=== PATIENT | female | born 1940 | race Caucasian/White ===

== ENCOUNTER 2017-02-19 16:20 | Emergency (ER) | payer OTHER ==
[~2017-02-19 16:20] MED LIST: BENAZEPRIL; CORE25 PO; COU5 PO; CRESTOR; L40 PO; LEXAPRO; LEXAPRO PO; VIC PO; WARFARIN PO
[2017-02-19 19:35] VITALS: BP 140/73
== END 2017-02-19 19:35 | disposition home or self-care (01) ==
LOC: ED 16:20
DX: I73.9 Peripheral vascular disease, unspecified (principal); E78.5 Hyperlipidemia, unspecified; I10 Essential (primary) hypertension; Z86.73 Personal history of transient ischemic attack (TIA), and cerebral infarction without residual deficits; Z95.0 Presence of cardiac pacemaker; Z95.1 Presence of aortocoronary bypass graft
CPT/HCPCS: Q0092

== ENCOUNTER 2017-07-30 19:42 | Inpatient (IN) | payer OTHER ==
[~2017-07-30] VITALS: Ht 160 cm; Wt 71.9 kg
[2017-07-30 20:47] LABS: BASOPHIL % 0.4 % (0-2); PLATELET COUNT 277 x10^3mcL (130-400); RED CELL DISTRIBUTION WIDTH 13.6 % (11.5-14.5)
[2017-07-30 20:50] LABS: CALCIUM 9.1 mg/dL (8.5-10.1); CARBON DIOXIDE 31.9 mmol/L (21-32); CHLORIDE SERUM 100 mmol/L (98-107); CREATININE SERUM 0.9 mg/dL (0.6-1.0); GLUCOSE SERUM 382 mg/dL (74-106); POTASSIUM SERUM 4.1 mmol/L (3.5-5.1); SODIUM SERUM 132 mmol/L (136-145)
[2017-07-30 20:55] LABS: ALKALINE PHOSPHATASE 280 U/L (46-116); ALT/SGPT 76 U/L (14-59); AST/SGOT 25 U/L (15-37); BILIRUBIN TOTAL 0.8 mg/dL (0.20-1.00); TOTAL PROTEIN, SERUM 6.5 g/dL (6.4-8.2)
[2017-07-30 20:56] LABS: ALBUMIN 2.7 g/dL (3.4-5.0)
[2017-07-30] MEDS ORDERED: DIGOXIN0.125 M1 PO (21:10)
[2017-07-30] MEDS ORDERED: CLONAZEPAM1 MG PO (21:12)
[2017-07-30] MEDS ORDERED: CATAPRES0.1 MG PO (22:50)
[2017-07-30] MEDS ORDERED: AMITIZA8 MC1 PO (22:51)
[2017-07-30] MEDS ORDERED: COLACE100 MG PO (22:51)
[2017-07-30] MEDS ORDERED: DOK100 MG (22:51)
[2017-07-30] MEDS ORDERED: LACTULOSE10 GM/152 PO (22:52)
[2017-07-30] MEDS ORDERED: ATORVASTATIN CA40 M1 PO (22:54)
[2017-07-30 23:20] VITALS: BP 171/87
[2017-07-30 23:35] LABS: UA SPECIFIC GRAVITY 1.015 (1.005-1.035)
[2017-07-30 23:37] LABS: microscopic required? YES; urine erythrocyte 1+ (NEGATIVE)
[2017-07-31] VITALS (7 sets, daily range): BP systolic 132–207; BP diastolic 64–87
[2017-07-31 01:13] LABS: PHOSPHOROUS 3.1 mg/dL (2.5-4.9)
[2017-07-31 01:17] LABS: T3 TOTAL 0.8 ng/mL
[2017-07-31 01:23] LABS: FREE T4 1.06 ng/dL (0.76-1.46); FREE THYROXINE INDEX 2.4 ug/dL (1.4-4.5); T4(THYROXINE) 6.8 ug/dL (4.7-13.3)
[2017-07-31 06:05] LABS: BASOPHIL % 0.6 % (0-2); PLATELET COUNT 283 x10^3mcL (130-400); RED CELL DISTRIBUTION WIDTH 13.7 % (11.5-14.5)
[2017-07-31 06:44] LABS: CALCIUM 8.9 mg/dL (8.5-10.1); CARBON DIOXIDE 31.2 mmol/L (21-32); CHLORIDE SERUM 103 mmol/L (98-107); CREATININE SERUM 0.8 mg/dL (0.6-1.0); GLUCOSE SERUM 315 mg/dL (74-106); POTASSIUM SERUM 4.4 mmol/L (3.5-5.1); SODIUM SERUM 137 mmol/L (136-145)
[2017-08-01 06:21] VITALS: BP 156/67
[2017-08-01 06:28] LABS: ALBUMIN 2.6 g/dL (3.4-5.0); BILIRUBIN DIRECT 0.37 mg/dL (0.0-0.2); BILIRUBIN TOTAL 0.6 mg/dL (0.20-1.00); TOTAL PROTEIN, SERUM 6.3 g/dL (6.4-8.2)
[2017-08-01 09:39] VITALS: BP 190/81
[2017-08-01 11:58] VITALS: BP 148/64
[2017-08-01 17:45] VITALS: BP 216/102
[2017-08-01 21:26] VITALS: BP 194/76
[2017-08-01 23:51] VITALS: BP 142/61
[2017-08-02 05:33] VITALS: BP 141/59
[2017-08-02 08:17] VITALS: BP 140/77
[2017-08-02] MEDS ORDERED: METFORMIN HCL1000 MG PO (10:30)
[2017-08-02 10:34] LABS: BILIRUBIN DIRECT 0.16 mg/dL (0.0-0.2); BILIRUBIN TOTAL 0.68 mg/dL (0.20-1.00); TOTAL PROTEIN, SERUM 6.8 g/dL (6.4-8.2)
[2017-08-02 10:35] LABS: ALBUMIN 2.9 g/dL (3.4-5.0)
[2017-08-02] MEDS ORDERED: ZES10 PO (10:43)
[2017-08-02] MEDS ORDERED: LEXAPRO10 MG PO (10:45)
[2017-08-02 12:45] VITALS: BP 140/77
[2017-08-02] MEDS ORDERED: XARELTO10 M1 PO (12:58)
== END 2017-08-02 13:47 | disposition home or self-care (01) | DRG 391 ==
LOC: ED 19:42 → DU 22:11
PROVIDERS: Emergency Medicine; Internal Medicine Gastroenterology; ADMIT Family Medicine
PROC: 0DBL8ZZ Excision of Transverse Colon, Via Natural or Artificial Opening Endoscopic (ICD-10-PCS; 2017-08-01)
PROC: 0DBK8ZZ Excision of Ascending Colon, Via Natural or Artificial Opening Endoscopic (ICD-10-PCS; principal; 2017-08-01 12:00)
DX: K59.00 Constipation, unspecified (principal); E43 Unspecified severe protein-calorie malnutrition; K85.10 Biliary acute pancreatitis without necrosis or infection; N39.0 Urinary tract infection, site not specified; D12.3 Benign neoplasm of transverse colon; D12.2 Benign neoplasm of ascending colon; K57.30 Diverticulosis of large intestine without perforation or abscess without bleeding; E86.0 Dehydration; I16.0 Hypertensive urgency; E11.65 Type 2 diabetes mellitus with hyperglycemia; E11.51 Type 2 diabetes mellitus with diabetic peripheral angiopathy without gangrene; K80.20 Calculus of gallbladder without cholecystitis without obstruction; I10 Essential (primary) hypertension; E78.5 Hyperlipidemia, unspecified; R31.9 Hematuria, unspecified; I48.2 Chronic atrial fibrillation; I25.2 Old myocardial infarction; Z68.28 Body mass index [BMI] 28.0-28.9, adult; Z79.01 Long term (current) use of anticoagulants; Z86.73 Personal history of transient ischemic attack (TIA), and cerebral infarction without residual deficits; Z95.1 Presence of aortocoronary bypass graft
CPT/HCPCS: 45378; 76770; 82962; 83880; 84439; 90658; 97110-GP; 97116-GP; 97530-GP; J0360; J0696; J1200; J1610; J1885; J2250; J2310; J2405; J2765; J3010; J3490; J7030; J7120; Q0092

== ENCOUNTER → 2017-08-08 | Outpatient (CLI) | payer OTHER ==
[~2017-08-08] MED LIST changes: +AMITIZA8 MC1 PO; +ATORVASTATIN CA40 M1 PO; +CATAPRES0.1 MG PO; +CLONAZEPAM1 MG PO; +COLACE100 MG PO; +DIGOXIN0.125 M1 PO; +DOK100 MG; +LACTULOSE10 GM/152 PO; +LEXAPRO10 MG PO; +METFORMIN HCL1000 MG PO; +XARELTO10 M1 PO; +ZES10 PO
[2017-08-08 12:28] LABS: PLATELET COUNT 290 x10^3mcL (130-400); RED CELL DISTRIBUTION WIDTH 13.6 % (11.5-14.5)
[2017-08-08 12:49] LABS: ALKALINE PHOSPHATASE 161 U/L (46-116); CALCIUM 9.6 mg/dL (8.5-10.1); CARBON DIOXIDE 32.5 mmol/L (21-32); CHLORIDE SERUM 99 mmol/L (98-107); GLUCOSE SERUM 249 mg/dL (74-106); POTASSIUM SERUM 3.7 mmol/L (3.5-5.1); SODIUM SERUM 138 mmol/L (136-145)
== END | disposition home or self-care (01) ==
LOC: LB 12:04
DX: E78.5 Hyperlipidemia, unspecified (principal); I10 Essential (primary) hypertension; I48.91 Unspecified atrial fibrillation; R25.9 Unspecified abnormal involuntary movements